=== PATIENT | female | born 1930 | race Hispanic/Latino ===

== ENCOUNTER 2016-09-05 12:49 | Outpatient (CLI) | payer MEDICARE ==
--- NOTE | 2016-09-05 14:11 | XRay Report ---
LEFT KNEE, 3 views: History: Left knee pain. Borderline to mild osteopenia is suspected. No evidence for fracture, bone lesion or joint effusion. Minimal osteoarthritic changes. IMPRESSION: Borderline bone mineralization. Minimal degenerative changes. No acute process noted.
== END 2016-09-05 12:50 | disposition home or self-care (01) ==
LOC: SPVIMAG 12:49
PROVIDERS: ATTEND Internal Medicine
DX: M17.12 Unilateral primary osteoarthritis, left knee (principal)